=== PATIENT | male | born 1970 | race Caucasian/White ===

== ENCOUNTER 2017-04-22 21:41 | Emergency (ER) | payer OTHER ==
[~2017-04-22] VITALS: Ht 188 cm; Wt 127.0 kg
[2017-04-22 21:58] VITALS: BP 147/90
--- NOTE | 2017-04-22 22:17 | NUR ---
TO ER BED 5
--- NOTE | 2017-04-22 22:26 | NUR ---
46 Y/O M W/C/O NAUSEA, VOMITING AND DIZZINESS X 2 DAYS AND HEADACHES X TODAY. DENIES ANY MED HX. VSS, NO S/S OF DISTRESS NOTED AT THE MOMENT.
--- NOTE | 2017-04-22 22:33 | NUR ---
NINA SANTORO AND PA STUDENT AT [facility] EVALUATING PT.
[2017-04-22] MEDS ORDERED: KETOROLAC 30 MG/ML VIAL IM ONE (22:45)
[2017-04-22] MEDS ORDERED: HYDROcodone/APAP 5/325 MG 1 TAB TAB PO ONE (22:45)
[2017-04-22] MEDS ORDERED: ONDANSETRON 4 MG ODT PO ONE (22:45)
[2017-04-22 23:16] LABS: ANION GAP 12.7 (8-16); CARBON DIOXIDE 29.1 mmol/L (21-32); CREATININE 1.2 mg/dL (0.6-1.3); POTASSIUM 3.8 mmol/L (3.5-5.1)
[2017-04-23 00:10] VITALS: BP 139/83
--- NOTE | 2017-04-23 00:10 | NUR ---
Patient discharged with v/s stable. Written and verbal after care instructions given and explained. Patient alert, oriented and verbalized understanding of instructions. Ambulatory with steady gait. All questions addressed prior to discharge. ID band removed. Patient advised to follow up with PMD TOMORROW OR RETURN TO ER IF CONDITION WORSEN. Rx of TYLENOL WITH CODEINE AND ZOFRAN given. Patient educated on indication of medication including possible reaction and side effects. Opportunity to ask questions provided and answered.
== END 2017-04-23 00:10 | disposition home or self-care (01) ==
LOC: MED 21:41
DX: R51 Headache (principal); J06.9 Acute upper respiratory infection, unspecified
CPT/HCPCS: 36415; 80048; 93005; 96372; 99285; J1885; S0119